=== PATIENT | female | born 1955 | race Caucasian/White ===

== ENCOUNTER → 2021-11-20 | Outpatient (CLI) | payer MEDICARE, OTHER ==
[~2021-11-20] MED LIST: CALCIUM 600 PLU1 TAB PO; FISH OIL 1000MG1 CAP PO; MULTIPLE VITAMI1 CAP PO; SYNTHROID0.1 MG/TAB PO; ZOCOR 20MG20 MG PO
== END ==
LOC: COL.RAD 12:03
DX: M25.551 Pain in right hip (principal)
CPT/HCPCS: J3301; Q9967

== ENCOUNTER 2023-12-16 21:35 | Observation (INO) | payer MEDICARE, OTHER ==
[2023-12-16] VITALS (7 sets, daily range): BP systolic 117–134; BP diastolic 71–91; PULSE 105–123; TEMP 97.9
[~2023-12-16] VITALS: Ht 165.1 cm; Wt 88.1 kg
--- NOTE | 2023-12-16 22:00 | NUR ---
PT WAS ADMITTED TO ICU BED 2 12/15 AT 2134 FROM [facility]. PT ARRIVED VIA EMS. PT AMBULATED TO THE BED. PT AMBULATED TO THE BATHROOM AND VOIDED 100 ML URINE AT TIME OF ADMISSION. PT CHANGED INTO GOWN AND MONITORING EQUIPMENT APPLIED. PT DENIED CHEST PAIN AT TIME OF ADMISSION. PT DID C/O HEADACH AND HEARTBURN. 20G PIV TO RT HAND AND AC. IV'S FLUSHED PUMP SETTING CONFIRMED. PT IS ON CARDIZEM AT 15MG/HR AND HEPARIN AT 1000 UNITS/HR. PHONE CALL TO PROVIDER TO NOTIFY OF PT ARRIVAL.
[2023-12-16] MEDS ORDERED: PRIL40 PO (22:36)
[2023-12-16] MEDS ORDERED: ULTRAM 50MG TAB50 MG PO (22:38)
[2023-12-16] MEDS ORDERED: Acetaminophen 325 MG TAB PO PRN (23:00)
[2023-12-17] VITALS (13 sets, daily range): BP systolic 111–139; BP diastolic 62–83; PULSE 59–134; TEMP 97.5–98.2
[2023-12-17] MEDS ORDERED: TAZTIA120 PO (00:04)
[2023-12-17] MEDS ORDERED: CARAFATE 1GM1 G PO (00:05)
[2023-12-17] MEDS ORDERED: EUTHYROX125 MCG PO (00:06)
[2023-12-17] MEDS ORDERED: TOPROL XL 50MG50 MG PO (00:06)
[2023-12-17] MEDS ORDERED: Simvastatin 20 MG **** subs to Atorvastatin 10 MG PO SCH (00:07)
[2023-12-17] MEDS ORDERED: traMADol 50 MG TAB PO PRN (00:15)
[2023-12-17] MEDS ORDERED: Mag/Al Hydrox/Simeth Susp 30 ML CUP PO ONE (00:30)
[2023-12-17] MEDS ORDERED: Heparin 5,000 UNITS/ML 1 ML VIAL IV PRN (00:45)
[2023-12-17] MEDS ORDERED: Heparin/D5W 250 ML IV SCH (00:45)
[2023-12-17] MEDS ORDERED: Heparin 5,000 UNITS/ML 1 ML VIAL IV ONE (00:45)
[2023-12-17 01:08] LABS: PARTIAL THROMBOPLASTIN TIME 88.3 SECONDS (26.0-37.0)
--- NOTE | 2023-12-17 01:48 | NUR ---
PT HAS CONVERTED TO NSR. PT MEDICATED FOR C/O HEADACH AND HEARTBURN. HEP XA THERAPUTIC. BOLUS WAS GIVEN IN [facility] SO NO BOLUS GIVEN UPON ADMISSION. RATE WAS NOT CHANGED. PT REMAINS ON 1000 UNITS/HR. WILL RECHECK AT 0800. PT IS NPO FOR POSSIBLE JUANCHO/CARDIOVERSION. PT WATCHING TV. STATES SHE CAN NOT SLEEP. RESPIRATIONS EVEN AND UNLABORED. PT PINK, WARM AND DRY. NO SIGN OF DISTRESS AT THIS TIME.
[2023-12-17 04:10] LABS: CALCIUM 9.7 mg/dL (8.4-10.2); CREATININE, serum 0.83 mg/dL (0.57-1.11); POTASSIUM 3.8 mEq/L (3.5-4.5)
[2023-12-17] MEDS ORDERED: traMADol 50 MG TAB PO ONE (05:45)
--- NOTE | 2023-12-17 06:40 | NUR ---
PT C/O HEADACH MOST OF THE NIGHT. BLOOD PRESSURE WNL. PT CONVERTED TO SR ON ECG. PT STATES SHE IS HAVING TROUBLE SLEEPING. DID NOT LIKE THE BED. PT UP TO THE RECLINER FOR SEVERAL HOURS. CARDIZEM WEANED DOWN TO 5MG/HR. HEPARIN DRIP REMAINS AT 1000 UNITS. RESPIRATIONS EVEN AND UNLABORED. NO SIGN OF DISTRESS AT THIS TIME.
--- NOTE | 2023-12-17 07:00 | NUR ---
REPORT RECEIVED FROM HARVEY HARTMANN. PT RESTING IN BED, VSS ON ROOM AIR. HEPARIN AND CARDIZEM INFUSING TO PERIPHERAL IV ORDERED, SEE EMAR. PT IS ALERT AND ORIENTED, CALL LIGHT IN REACH, DENIES NEEDS AT THIS TIME.
[2023-12-17] MEDS ORDERED: Sucralfate 1 G TAB PO SCH (07:30)
--- NOTE | 2023-12-17 09:27 | NUR ---
Initial visit; Mily thanked [employer] for visit and offering God's blessings. [employer]ender will keep Mily in her prayers.
[2023-12-17] MEDS ORDERED: Apixaban 5 MG TABLET PO SCH (10:20)
--- NOTE | 2023-12-17 10:28 | NUR ---
community center worker met with patient to discuss discharge planning. Patient lives in [place] with her , Lion, Karen# [phone]. PCP is Dr. Casey at [facility] in [place]. [facility] is [facility]. No issues affording medications. Insurance is Medicare A and B and for [employer]. No DPOA-HC but patient wanted a blank form to review and complete outside of the hospital. SW provided this blank form. No DME, patient reports to be independent with ADLS. Patient reports she is able to transport herself to and from appointments. Patient would like to return home at time of discharge. Discharge plan: Home
[2023-12-17] MEDS ORDERED: ELIQUIS 5MG PO (12:27)
[2023-12-17] MEDS ORDERED: TAMBOCOR 1100 MG/TAB PO (12:28)
[2023-12-17] MEDS ORDERED: SYNTHROID 0.10.15 MG PO (12:31)
[2023-12-17] MEDS ORDERED: Atorvastatin 10 MG TAB PO SCH (21:00)
== END 2023-12-17 13:15 | disposition home or self-care (01) ==
LOC: ICU 21:35
PROVIDERS: Nurse Practitioner Family; ADMIT Internal Medicine
DX: I48.0 Paroxysmal atrial fibrillation (principal); I21.4 Non-ST elevation (NSTEMI) myocardial infarction; I10 Essential (primary) hypertension; E78.5 Hyperlipidemia, unspecified; K21.9 Gastro-esophageal reflux disease without esophagitis; E03.9 Hypothyroidism, unspecified; M19.90 Unspecified osteoarthritis, unspecified site; Z85.828 Personal history of other malignant neoplasm of skin; Z79.890 Hormone replacement therapy; Z79.899 Other long term (current) drug therapy; Z87.891 Personal history of nicotine dependence
CPT/HCPCS: G0378; G0379; J1644